=== PATIENT | female | born 1995 | race Caucasian/White ===

== ENCOUNTER 2018-05-28 21:06 | Emergency (ER) | payer SELFPAY ==
[2018-05-28 21:27] VITALS: BP 117/69; PULSE 79; TEMP 98.5; BMI 27.1
--- NOTE | 2018-05-28 21:30 | PDOC ---
Rapid Medical Evaluation Chief Complaint: Pain Time Seen by Provider: 05/28/18 21:27 Medical Evaluation: 05/28/18 21:27 I have performed a brief in-person evaluation of this patient. The patient presents with a chief complaint of: no PMHx sent from urgent care with right pelvic pain x 1 year which has been worsening in the last 2 days. Patient also report urinary frequency for 3 days. Denies dysuria, or burning with urination. LMP 04/05 and report always skip on menses when she is stressed out. no on control and sexually active. Pertinent physical exam findings: A&O x 3 in NAD I have ordered the following: UA,UCX, pelvic US, hcg The patient will proceed to the ED for further evaluation. 05/28/18 21:30 Discharge Disposition - Diagnosis Pelvic pain - Discharge Dispostion Condition at time of disposition: Stable - Referrals - Patient Instructions - Post Discharge Activity
--- NOTE | 2018-05-28 21:53 | PDOC ---
History of Present Illness - General Chief Complaint: Pain Stated Complaint: PAIN Time Seen by Provider: 05/28/18 21:27 History Source: Patient - History of Present Illness Initial Comments: 05/29/18 00:13 22-year-old female complaining of right pelvic/groin pain for the last 2 days. Patient reports that is more severe with coughing and movement. 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 Patient reports that the pain goes to the right from the right groin to the right flank with urinary frequency. Patient also reports that she had some episodes of diarrhea denies nausea, vomiting, fevers/chills, , hematuria. Denies trauma/fall.Patient was seen in urgent care today and was referred to the ER for further evaluation. Patient reports that she hasn't had her menstrual period for the last 2 months denies vaginal discharge, vaginal pain. 05/29/18 00:21 Past History - Past Medical History Allergies/Adverse Reactions: Allergies Allergy/AdvReac Type Severity Reaction Status Date / Time No Known Allergies Allergy Verified 05/28/18 22:59 Home Medications: Ambulatory Orders Ibuprofen 600 mg PO QID PRN #30 tablet 05/29/18 COPD: No - Suicide/Smoking/Psychosocial Hx Smoking History: Never smoked Have you smoked in the past 12 months: No Information on smoking cessation initiated: No Hx Alcohol Use: No Drug/Substance Use Hx: No Review of Systems - Review of Systems Able to Perform ROS?: Yes Is the patient limited Estonian proficient: No ABD/GI: Yes: Diarrhea, Abdominal cramping : Yes: Frequency, Flank Pain. No: Symptoms Reported, See HPI, Burning, Dysuria, Discharge, Hematuria, Incontinence, Pain, Urgency, Testicular Mass, Testicular Swelling, Lesions, Testicular Pain, Other *Physical Exam - Vital Signs Last Vital Signs Temp Pulse Resp BP Pulse Ox 98.5 F 79 17 117/69 98 05/28/18 21:21 05/28/18 21:21 05/28/18 21:21 05/28/18 21:21 05/28/18 21:21 - Physical Exam General Appearance: Yes: Appropriately Dressed Respiratory/Chest: positive: Lungs Clear, Normal Breath Sounds Female Pelvic Exam: positive: normal external exam. negative: adnexal tenderness Gastrointestinal/Abdominal: positive: Normal Bowel Sounds, Soft. negative: Tender (no lower qudrant tenderness) Musculoskeletal: positive: Normal Inspection, CVA Tenderness (R) Extremity: positive: Normal Capillary Refill, Normal Inspection, Normal Range of Motion Integumentary: positive: Normal Color, Dry, Warm Neurologic: positive: Fully Oriented, Alert, Normal Mood/Affect Moderate Sedation - Procedure Monitoring Vital Signs: Procedure Monitoring Vital Signs Temperature 98.5 F 05/28/18 21:21 Pulse Rate 79 05/28/18 21:21 Respiratory Rate 17 05/28/18 21:21 Blood Pressure 117/69 05/28/18 21:21 O2 Sat by Pulse Oximetry (%) 98 05/28/18 21:21 ED Treatment Course - LABORATORY CBC & Chemistry Diagram: 05/28/18 21:22 05/28/18 21:22 - RADIOLOGY Radiology Studies Ordered: Category Date Time Status PELVIS(OTHER) US [US] Stat Ultrasound 05/28/18 21:40 Ordered TRANSVAGINAL ULTRASOUND US [US] Stat Ultrasound 05/28/18 21:40 Ordered Progress Note - Progress Note Progress Note: A: pelvic pain; flank pain P: TVUS UA UCX Urine CBC CMP Spiral CT Medical Decision Making - Medical Decision Making 05/29/18 00:24 Ultrasound: Appendix cannot be visualized. A small amount of free fluid noted in the cul-de-sac. Mild nonspecific endometrial thickening which made physiologic in nature. CT spiral: Lung bases are clear other than a one mm right lower lobe subpleural and 2 mm left lower lobe subpleural nodule nodule, too small to characterize. The visualized cardiac chambers are normal size and configuration. Punctate nonobstructing left renal stones are noted. Normal unenhanced liver, gallbladder, pancreas, spleen, adrenal glands and right kidney. The stomach and abdominal small and large bowel are normal. There is no aortic aneurysm. There is no significant retroperitoneal lymphadenopathy. The pelvic small and large bowel are normal. The appendix is normal. The uterus and adnexal structures are normal. Urinary bladder is unremarkable. There is no pelvic free fluid. No discrete pelvic lymphadenopathy is identified. *DC/Admit/Observation/Transfer Diagnosis at time of Disposition: Pelvic pain, Flank pain, acute - Discharge Dispostion Disposition: HOME Condition at time of disposition: Stable - Prescriptions Prescriptions: Ibuprofen 600 mg PO QID PRN #30 tablet PRN Reason: Pain - Referrals Referrals: Razmzan,Thierno, MD [Staff Physician] - - Patient Instructions Printed Discharge Instructions: DI for Flank Pain Additional Instructions: Drink plenty of fluids. Take ibuprofen every 6 hours as needed for pain. Follow-up with a healthcare manager. Returns emergency room if symptoms are worse. - Post Discharge Activity
[2018-05-28 22:08] LABS: URINE APPEARANCE CLEAR; URINE BILIRUBIN NEGATIVE (<2.0 mg/dL); URINE COLOR STRAW; URINE GLUCOSE (UA) NEGATIVE (NEGATIVE); URINE KETONE NEGATIVE (NEGATIVE); URINE LEUK ESTERASE NEGATIVE (NEGATIVE); URINE NITRITE NEGATIVE (NEGATIVE); URINE PROTEIN NEGATIVE (NEGATIVE); URINE UROBILINOGEN NEGATIVE mg/dL (0.2-1.0)
[2018-05-28 22:10] LABS: HCG,QUALITATIVE URINE Negative
[2018-05-28 22:22] LABS: EPI CELLS RARE /HPF (FEW); URINE MUCUS RARE
[2018-05-28 22:46] LABS: BASO % 0.6 % (0-2.0); EOS % 1.5 % (0-4.5); HEMATOCRIT 36.2 % (35.4-49); HEMOGLOBIN 12.3 GM/dL (11.7-16.9); LYMPH % 25.6 % (8-40); MCH 28.6 pg (25.7-33.7); MEAN CELL VOLUME 84.1 fl (80-96); MEAN PLT VOLUME 8.9 fl (7.5-11.1); MONO % 11.9 % (3.8-10.2); NEUT % 60.4 % (42.8-82.8); PLATELET COUNT 294 K/MM3 (134-434); RBC 4.31 M/mm3 (4.00-5.60); RDW 14.5 % (11.9-15.9); WHITE BLOOD COUNT 6.5 K/mm3 (4.0-10.0)
--- NOTE | 2018-05-28 23:08 | PDOC ---
*Physical Exam - Vital Signs Last Vital Signs Temp Pulse Resp BP Pulse Ox 98.5 F 79 17 117/69 98 05/28/18 21:21 05/28/18 21:21 05/28/18 21:21 05/28/18 21:21 05/28/18 21:21 ED Treatment Course - LABORATORY CBC & Chemistry Diagram: 05/28/18 21:22 05/28/18 21:22 - ADDITIONAL ORDERS Additional order review: Laboratory Results 05/28/18 21:17 Urine Color Straw Urine Appearance Clear Urine pH 6.0 Ur Specific [place] 1.010 Urine Protein Negative Urine Glucose (UA) Negative Urine Ketones Negative Urine Blood 3+ H Urine Nitrite Negative Urine Bilirubin Negative Urine Urobilinogen Negative Ur Leukocyte Esterase Negative Urine WBC (Auto) None Urine RBC (Auto) 45 Ur Epithelial Cells Rare Urine Mucus Rare Urine HCG, Qual Negative 05/28/18 21:22 RBC 4.31 MCV 84.1 MCHC 34.0 RDW 14.5 MPV 8.9 Neutrophils % 60.4 Lymphocytes % 25.6 Monocytes % 11.9 H Eosinophils % 1.5 Basophils % 0.6 Medical Decision Making - Medical Decision Making 05/28/18 23:08 Pt seen by Midlevel Provider under my direct supervision Pt interviewed and examined Ancillary studies reviewed I agree with plan as outlined by Midlevel Provider *DC/Admit/Observation/Transfer Diagnosis at time of Disposition: Pelvic pain - Discharge Dispostion Condition at time of disposition: Stable - Referrals - Patient Instructions - Post Discharge Activity
[2018-05-28 23:14] LABS: ALBUMIN 3.9 g/dl (3.4-5.0); ALK PHOS 78 U/L (45-117); ANION GAP 5 MMOL/L (8-16); BILIRUBIN,TOTAL 0.1 mg/dL (0.2-1); BLOOD UREA NITROGEN 8 mg/dL (7-18); CALCIUM 8.4 mg/dL (8.5-10.1); CHLORIDE 110 mmol/L (98-107); CO2 24 mmol/L (21-32); CREATININE 0.6 mg/dL (0.55-1.3); GLUCOSE,RANDOM 78 mg/dL (74-106); POTASSIUM 3.8 mmol/L (3.5-5.1); SGOT/AST 18 U/L (15-37); SGPT/ALT 28 U/L (13-61); SODIUM 139 mmol/L (136-145); TOT PROT 7.2 g/dl (6.4-8.2)
[2018-05-29] MEDS ORDERED: IBUPROFEN 600 MG TABLET (FP) PO ONE ×2 (00:09→00:28)
== END 2018-05-29 00:31 | disposition home or self-care (01) ==
LOC: EDSEX 21:06 → JER 21:06
DX: R10.2 Pelvic and perineal pain (principal)
CPT/HCPCS: 36415; 74176; 76830-TC; 76856-TC; 80053; 81003; 81015; 84703; 85025; 87086; 87491; 87591; 99284-25